=== PATIENT | male | born 1975 | race Caucasian/White ===

== ENCOUNTER 2020-02-15 13:45 | Emergency (ER) | payer OTHER ==
[~2020-02-15 13:45] MED LIST: NORCO 5-325 TA1 EACH PO
== END 2020-02-15 17:10 | disposition home or self-care (01) ==
LOC: ER1 13:45
DX: J06.9 Acute upper respiratory infection, unspecified (principal); Z20.822 Contact with and (suspected) exposure to COVID-19
CPT/HCPCS: 99283; U0003